=== PATIENT | female | born 1970 | race Caucasian/White ===

== ENCOUNTER 2021-07-19 20:59 | Emergency (ER) | payer MEDICAID ==
[~2021-07-19] VITALS: Ht 152.4 cm; Wt 71.0 kg
[2021-07-20 00:19] VITALS: BP 190/114
[2021-07-20] MEDS ORDERED: IBUPROFEN 600MG TABLET PO STA (00:19)
[2021-07-20] MEDS ORDERED: NAPR-1164 MT (01:15)
== END 2021-07-20 03:21 | disposition home or self-care (01) ==
LOC: ER 20:59
DX: M71.22 Synovial cyst of popliteal space [Baker], left knee (principal); Z98.890 Other specified postprocedural states; I10 Essential (primary) hypertension
CPT/HCPCS: 93971; 99284